=== PATIENT | female | born 1970 | race Two or more races ===

== ENCOUNTER 2023-04-05 08:21 | Outpatient (AMB) | payer OTHER, SELFPAY ==
[2023-04-05 08:32] VITALS: BP 124/70; PULSE 101; RESP 12; TEMP 36.6; O2SAT 98; BMI 40.0
--- NOTE | 2023-04-05 08:32 | AM.OFFWIN_ITS ---
Intake Vital Signs 04/05/23 08:32 Height 5 ft 9 in Weight 271 lb BMI 40.0 BP 124/70 Blood Pressure Location Lt brachial Position Sitting Respiration 12 Pulse 101 H Pulse Source Pulse Oximeter Temp 97.8 F Temp Source Temporal Artery Scan Pulse Oximetry (%) 98 Oxygen Delivery Method Room Air Intake Visit Reasons: facial swelling Intake Note: Patient states that the swelling started Saturday night. Patient has severe allergies and states that ta first it was a tingling then an itch that wouldnt stop. Patient has swelling around eyes and on sides of face. Patient would like some eavesdrops and allergy meds if possible. 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 Patient states that the swelling started Saturday night. Patient has severe allergies and states that ta first it was a tingling then an itch that wouldnt stop. Patient states she has swelling around eyes and on sides of face. She denies any breathing problems and difficulty swallowing. She denies any pain. [facility] Social History Patient Tobacco Use Status: Never used Tobacco Review of Systems Const Denies chills, Denies fatigue, Denies fever(s), Denies headache(s) and Denies weakness ENT Denies dizziness and Denies headache(s) Card Denies dyspnea Resp Denies cough, Denies dyspnea, Denies wheezing and Denies other (shortness of breath) Musc Denies numbness and Denies tingling Neuro Denies dizziness, Denies headache(s), Denies numbness, Denies tingling and Denies weakness Psych Denies anxiety and Denies depression Endo Denies fatigue Aller/Immun Denies wheezing Physical Exam Vital Signs: Last Vital Signs Temp 97.8 F 04/05/23 08:32 Pulse 101 H 04/05/23 08:32 Resp 12 04/05/23 08:32 BP 124/70 04/05/23 08:32 Pulse Ox 98 04/05/23 08:32 Oxygen Delivery Method Room Air 04/05/23 08:32 BMI result Body Mass Index 40.0 Const General: well developed; No acute distress Nutritional Appearance: well nourished Orientation/consciousness: patient oriented x3 HEENT Head: Yes normocephalic and Yes atraumatic Eyes General: appearance normal, both eyes and all related structures Pupils: Equal, round and reactive pupils present EOM: EOMs intact bilaterally Resp Effort & Inspection: normal respiratory effort Neuro General: patient oriented x3 and gait normal Cranial nerves: Yes Equal, round and reactive pupils present Psych Affect: normal affect Assessment & Plan Assessment & Plan (1) Facial swelling: Code(s): R22.0 - Localized swelling, mass and lump, head Plan: Nontender Facial swelling without swallowing or breathing problems. Allergic reaction Start Benadryl and prednisone taper Gave patient an EpiPen and she will use this if she has any breathing or swallowing trouble and then go to an ED She can follow-up with her PCP and discuss referral to immunology for allergy testing Medications: New diphenhydramine HCl (Allergy (diphenhydramine)) 50 mg (2 x 25 mg) PO TID 2 days PRN 12 tabs 0RF allergy symptoms prednisone 4 tabs daily for 4 days, 3 tabs daily for 2 days, 2 tabs daily for 2 days, 1 tab daily for 2 days PO daily; 10 days 28 tabs 0RF epinephrine (EpiPen 2-Guilherme) 0.3 mg (0.3 mL) IM Q4H 30 days PRN 2 ea 2RF anaphylaxis Coding Level of Care Code New Pt Level 3 (98585) Diagnoses Facial swelling R22.0
== END 2023-04-05 09:21 | disposition home or self-care (01) ==
PROVIDERS: Visit Provider Family Medicine
DX: R22.0 Localized swelling, mass and lump, head (principal)
CPT/HCPCS: 99203

== ENCOUNTER 2024-05-19 13:48 | Inpatient (IN) | payer OTHER, SELFPAY ==
[2024-05-19] VITALS (12 sets, daily range): BP systolic 116–151; BP diastolic 51–80; PULSE 97–126; RESP 16–25; TEMP 36–38.3; O2SAT 91–100; BMI 39.6; BMI 41.1
--- NOTE | ~2024-05-19 | US_ITS ---
EXAMINATION: US ABDOMEN LIMITED CLINICAL INFORMATION: Right upper quadrant pain with question of cholecystitis. COMPARISON: None available. TECHNIQUE: Real-time imaging of the right upper quadrant abdominal viscera. FINDINGS: PANCREAS: Normal. LIVER: Normal. The liver is normal in size. The liver contour is normal. Parenchymal echogenicity is normal. No focal hepatic lesion. There is no intrahepatic biliary duct dilatation seen. GALLBLADDER: There is a large 5.5 x 4.1 x 3.2 cm gallstone in the gallbladder. The gallbladder has a thickened wall measuring 0.9 cm with some mild fluid in the wall. Britton's sign is positive. No pericholecystic drainable fluid collections are seen COMMON BILE DUCT: Normal in caliber measuring 0.5 cm in diameter. RIGHT KIDNEY: Normal. No hydronephrosis. No renal calculi or focal parenchymal lesions. The kidney measures 10.3 cm in maximum dimension. FREE FLUID: None. US/US abdomen limited IMPRESSION: Cholelithiasis with thickened gallbladder wall and positive Britton's sign. Findings are consistent with acute cholecystitis. Electronically signed by: Mp Arreguin MD 05/19/2024 04:52 PM EDT
--- NOTE | 2024-05-19 14:45 | ECG_ITS ---
Test Reason : ARRYTHMIA Blood Pressure : / mmHG Vent. Rate : 122 BPM Atrial Rate : 122 BPM P-R Int : 120 ms QRS Dur : 068 ms QT Int : 274 ms P-R-T Axes : 046 037 027 degrees QTc Int : 390 ms Sinus tachycardia Cannot rule out Anterior infarct , age undetermined Abnormal ECG No previous ECGs available Referred By: Lucie Vaughn Electronically Signed By:Carlos Jimenez
--- NOTE | 2024-05-19 14:49 | ED.ABDPAIN ---
HPI - Abdominal Pain General Chief Complaint: Abdominal Pain Stated Complaint: Appendicitis? Sent by urgent care Time Seen by Provider: 05/19/24 15:58 Source: patient Mode of arrival: ambulatory Limitations: no limitations History of Present Illness HPI narrative: Patient is a 53-year-old female with past medical history of obesity presenting to emergency department for evaluation of abdominal pain for 3 days. Pain is localized across the upper abdomen predominantly the right upper quadrant and radiates laterally into her back, has had associated nausea with this, 2 days ago she had 2 episodes of vomiting but no vomiting since then. She was having issues with constipation but had a very large soft bowel movement today before presenting to an urgent care. She was referred to the emergency department for further evaluation. She reports having a tactile low-grade fever. Denies any history of similar pain in the past. Has not eaten over the past 3 days. Denies having pain when drinking water. Related Data Home Medications ?Medication ?Instructions ?Recorded ?Confirmed ibuprofen 200 mg tablet 400 mg PO Q6H 04/05/23 Previous Rx's ?Medication ?Instructions ?Recorded diphenhydramine HCl 25 mg tablet 50 mg (2 x 25 mg) PO TID PRN 04/05/23 (Allergy (diphenhydramine)) allergy symptoms 2 days #12 tabs epinephrine 0.3 mg/0.3 mL 0.3 mg (0.3 mL) IM Q4H PRN 04/05/23 injection, auto-injector (EpiPen anaphylaxis 30 days #2 ea 2-Guilherme) prednisone 10 mg tablet See Rx Instructions PO DAILY 10 04/05/23 days #28 tabs Allergies Allergy/AdvReac Type Severity Reaction Status Date / Time Seasonal Allergies Allergy Severe Swelling Verified 05/19/24 14:39 Pet dander Allergy Severe Itchy Eyes Uncoded 05/19/24 14:39 Review of Systems Review of Systems Yes all other systems are reviewed and are negative PMFSH Past Medical History Attestation statement: The following information was validated with the patient. Source: old records reviewed Social History Social History Patient Tobacco Use Status: Never used Tobacco Advance Directives: No Advance Directives Information Provided: No Do you have a plan to hurt others: No Plan Physical Exam ED Vital Signs: Vital Signs - 24 hr 05/19/24 14:35 05/19/24 17:27 Temperature 98.8 F 98.5 F Pulse Rate 126 H 120 H Respiratory Rate 18 25 H Blood Pressure 151/76 H 131/62 Pulse Oximetry 97 100 Oxygen Delivery Method Room Air Room Air BMI result Body Mass Index 39.6 Appearance: Alert.?Oriented to person, place and time. No acute distress.?Normal affect. Eyes: Pupils equal, round and reactive to light.? ENT: Pharynx normal.?? Neck: Normal inspection.? Neck supple.?? CVS: Heart sounds normal. Normal heart rate and rhythm.? Pulses normal.?? Respiratory: No respiratory distress.? Lung sounds clear to auscultation bilaterally?? Abdomen: Soft right upper quadrant tenderness upon palpation, positive Britotn sign. Normoactive bowel sounds. Skin: Skin warm and dry.? Normal skin color.? Extremities: No lower extremity edema.? Neuro: Moves all extremities spontaneously. Sensation intact bilaterally. No focal neuro deficits. Ambulates with normal steady gait. Course Course Course Narrative: This is a rapid medical exam performed by Lucie Vaughn PA-C. The patient is a 53-year-old female with history of obesity, presenting with abdominal pain x3 days. Pain over right upper quadrant radiates to right mid back. Associated nausea vomiting. On exam, the patient's abdomen is soft, nondistended, obese, focal tenderness to right upper quadrant with mild voluntary guarding. We will screen basic labs, LFTs, fractionate the bilirubin, and obtain an ultrasound of the right upper quadrant. To note she is also tachycardic, but afebrile, I think this is pain driven, we are trying to expedite her assessment, ordering EKG to determine the rhythm. Reevaluation(s) Reevaluation #1: Ultrasound revealing acute calculi cholecystitis with a quite sizable stone, 5.5 cm, given her leukocytosis and infection sepsis alert called, sepsis fluid bolus ordered based on ideal body weight given obesity, covering with Zosyn, trialing pain management with ketorolac. Will consult with General surgery Dr. Grayson Time: 17:06 Medical Decision Making Medical Decision Making MDM Narrative: Patient is a 53-year-old female who presents emergency department for evaluation of abdominal pain as per HPI overall appears well, nontoxic, afebrile. Reviewed serum labs obtained from [facility]; has leukocytosis 16.9 with left shift, no anemia or thrombocytopenia. No electrolyte derangement. No BRANDEN. Total bilirubin 1.2 indirect bili 0.6 LFT and lipase otherwise unremarkable. She arrived tachycardic, ECG was obtained revealing a sinus tachycardia with ventricular rate of 122, QTC 390, no ST depression or elevation, no acute ischemic changes. Obtaining ultrasound of the right upper quadrant for further evaluation; hepatobiliary etiology, nephrolithiasis, ureteral calculi Differential Diagnosis Differential Diagnoses: The differential diagnosis associated with the presentation includes (See narrative above) Admission/Observation Consideration of admission/observation: Escalation of care including admission/observation considered Consult Healthcare Provider Management of the patient was discussed with: Poultry Field Service Technician General surgery; Dr. Grayson - admission Lab Data MDM Lab Attestation statement: I reviewed the patient's lab results. (See narrative above) 05/19/24 15:04 05/19/24 15:04 Labs: Lab Results 05/19/24 05/19/24 Range/Units 15:04 17:16 WBC 16.9 H (4.8-10.8) X10*3/uL RBC 4.85 (4.20-5.50) X10*6/uL Hgb 13.3 (12.0-16.0) g/dl Hct 40.0 (37.0-47.0) % MCV 82.5 (80.0-98.0) fL MCH 27.4 (27.0-33.0) pg MCHC 33.3 (31.0-35.0) g/dl RDW 13.4 (11.0-16.0) % Plt Count 245 (160-400) X10*3/uL MPV 10.8 (9.4-12.3) fL Immature Gran % (Auto) 0.5 H (0.0-0.4) % Neut % (Auto) 87.9 H (45-73) % Lymph % (Auto) 4.6 L (20-40) % [place] % (Auto) 6.7 (2-11) % Eos % (Auto) 0.1 (0-4) % Baso % (Auto) 0.2 (0-2) % Lymph # (Auto) 0.8 L (1.2-4.9) X10*3/uL [place] # (Auto) 1.1 (0.1-1.2) X10*3/uL Eos # (Auto) 0.0 (0.0-0.4) X10*3/uL Baso # (Auto) 0.0 (0.0-0.2) X10*3/uL Abs Immat Gran (auto) 0.08 H (0.00-0.03) X10*3/uL Absolute Neuts (auto) 14.9 H (2.0-8.3) x10*3/uL Absolute Nucleated RBC 0.000 (0.0-0.012) X10*3/uL Nucleated RBC % (auto) 0.0 (0.0-0.2) /100WBC Sodium 136 (135-145) mmol/L Potassium 3.7 (3.3-5.1) mmol/L Chloride 101 (96-108) mmol/L Carbon Dioxide 25 (22-29) mmol/L Anion Gap 14 (12-20) BUN 10 (9-16) mg/dL Creatinine 0.89 (0.5-1.4) mg/dL Estim Creat Clear Calc 101.9 Estimated GFR > 60 Random Glucose 147 H (60-115) mg/dL Lactic Acid 1.3 (0.5-2.0) mmol/L Calcium 9.7 (8.4-10.2) mg/dL Magnesium 2.1 (1.6-2.6) mg/dL Total Bilirubin 1.2 H (0.0-1.0) mg/dL Direct Bilirubin 0.6 H (0.0-0.5) mg/dL AST 24 (5-31) U/L ALT 9 (0-31) U/L Alkaline Phosphatase 95 (39-117) U/L Total Protein 8.0 (6.5-8.0) g/dL Albumin 4.1 (3.5-5.0) g/dL Lipase 11 (8-78) U/L Radiology Impression Discussion of test interpretation with radiology: I have reviewed the radiologist's reading. Radiologist Impression: US/US abdomen limited IMPRESSION: Cholelithiasis with thickened gallbladder wall and positive Britton's sign. Findings are consistent with acute cholecystitis. Independent Historian Clinical information obtained from an independent historian. History obtained from or confirmed by: Other (Daughter) External Record Review External record reviewed: Outpatient record Chronic Conditions Patient?s care impacted by: Other (Obesity) Medications Administered Generic Name Dose Route Start Last Admin Trade Name Freq PRN Reason Stop Dose Admin Sodium Chloride 1,986 mls @ 1,986 mls/hr 05/19/24 17:02 05/19/24 17:19 Ns IV 05/19/24 18:01 1,986 mls/hr .Q1H STA Administration Discontinued Medications Generic Name Dose Route Start Last Admin Trade Name Freq PRN Reason Stop Dose Admin Piperacillin Sod/Tazobactam 50 mls @ 100 mls/hr 05/19/24 17:02 05/19/24 17:22 Sod 3.375 gm/ Sodium Chloride IV 05/19/24 17:31 100 mls/hr ONCE ONE Administration Ketorolac Tromethamine 15 mg 05/19/24 16:51 05/19/24 17:21 Ketorolac Tromethamine 15 Mg/Ml Vial IVPUSH 05/19/24 16:52 15 mg ONCE ONE Administration Discharge Plan Discharge Patient Disposition: Admitted As Inpatient Print Language: Venezuelan
[2024-05-19 15:09] LABS: MANUAL DIFF FLAG NO
[2024-05-19 15:12] LABS: Basophils Percent Auto 0.2 % (0-2); Eosinophils Percent Auto 0.1 % (0-4); Hemoglobin 13.3 g/dl (12.0-16.0); Imm Gran Abs Auto 0.08 X10*3/uL (0.00-0.03); Imm Gran Pct Auto 0.5 % (0.0-0.4); Lymphocytes Absolute Auto 0.8 X10*3/uL (1.2-4.9); Lymphocytes Percent Auto 4.6 % (20-40); Mean Corpuscular HGB Conc 33.3 g/dl (31.0-35.0); Mean Corpuscular Hemoglobin 27.4 pg (27.0-33.0); Mean Corpuscular Volume 82.5 fL (80.0-98.0); Mean Platelet Volume 10.8 fL (9.4-12.3); Monocytes Absolute Auto 1.1 X10*3/uL (0.1-1.2); Monocytes Percent Auto 6.7 % (2-11); Neutrophils Absolute Auto 14.9 x10*3/uL (2.0-8.3); Neutrophils Percent Auto 87.9 % (45-73); Platelet Count 245 X10*3/uL (160-400); Red Blood Count 4.85 X10*6/uL (4.20-5.50); Red Cell Distribution Width 13.4 % (11.0-16.0); White Blood Count 16.9 X10*3/uL (4.8-10.8)
[2024-05-19 15:31] LABS: Alanine Aminotransferase 9 U/L (0-31); Albumin Level 4.1 g/dL (3.5-5.0); Alkaline Phosphatase 95 U/L (39-117); Anion Gap 14 (12-20); Aspartate Amino Transferase 24 U/L (5-31); Bilirubin Direct 0.6 mg/dL (0.0-0.5); Bilirubin Total 1.2 mg/dL (0.0-1.0); Blood Urea Nitrogen 10 mg/dL (9-16); Calcium 9.7 mg/dL (8.4-10.2); Carbon Dioxide 25 mmol/L (22-29); Chloride 101 mmol/L (96-108); Creatinine Clr Calc Pharmacy 101.9; Estimated Glomerular Filt Rate > 60; Glucose Random 147 mg/dL (60-115); Lipase 11 U/L (8-78); Magnesium 2.1 mg/dL (1.6-2.6); Potassium 3.7 mmol/L (3.3-5.1); Sodium 136 mmol/L (135-145)
--- NOTE | 2024-05-19 15:55 | PC.NURSE ---
US in room
[2024-05-19] MEDS: SODIUM CHLORIDE 1986 ML IV (17:19)
[2024-05-19] MEDS: Ketorolac Tromethamine 15 MG/ML VIAL IVPUSH (17:21)
[2024-05-19] MEDS: Piperacillin Sodium/Tazobactam 3.375 GM in 0.9 % Sodium Chloride 50 ML IV ×2 (17:22→23:50)
[2024-05-19 17:34] LABS: Lactic Acid 1.3 mmol/L (0.5-2.0)
--- NOTE | 2024-05-19 18:03 | PHA.MEDREC ---
Addendum entered by Ernesto Navarro RPh 05/19/24 18:05: Med rec reviewed Original Note: Pharmacy Consult ? Medication Reconciliation Pharmacy has completed the medication reconciliation. Patient confirmed she is not taking any medications at the moment, prescription or OTC.
--- NOTE | 2024-05-19 18:55 | P.HPGS_ITS ---
History of Present Illness History of Present Illness Date of Service: 05/19/24 Chief complaint: ABDO PAIN Narrative: Dian Lemus is a 53 year old female Who comes into the ER complaining epigastric right upper quadrant pain for the last 3 days. She said it started suddenly 3 days ago it woke her up. Since then she has been having sharp pain in the right upper quadrant. She has never had issues like this before. She had some nausea and was vomiting and generally not feeling well but now feels much improved. She is tender in the right upper quadrant she is nonicteric. In the emergency room her white count was normal but her T bili was little elevated. Right upper quadrant ultrasound was carried out which showed an extensive thickening of her gallbladder wall 2.9 cm and a very large 5 x 4 cm stone in her gallbladder. No biliary ductal dilatation maybe some trace pericholecystic fluid. She never knew that she had gallbladder issues before. No past previous surgeries Review of Systems Review of Systems: Yes all other systems are reviewed and are negative [facility] Social History Social History Patient Tobacco Use Status: Never used Tobacco Advance Directives: No Advance Directives Information Provided: No Do you have a plan to hurt others: No Plan Meds Allergies Allergy/AdvReac Type Severity Reaction Status Date / Time Seasonal Allergies Allergy Severe Swelling Verified 05/19/24 14:39 Pet dander Allergy Severe Itchy Eyes Uncoded 05/19/24 14:39 Active Medications: Current Medications Acetaminophen (Acetaminophen 325 Mg Tablet) 650 mg PO Q6H PRN PRN Reason: Pain, Mild (Pain Scale 1-3), fever or headache Calcium Carbonate (Calcium Carbonate 750 Mg Tab.Chew) 750 mg PO Q4H PRN PRN Reason: Heartburn Magnesium Hydroxide (Milk Of Magnesia 30 Ml Oral.Susp) 30 ml PO DAILY PRN PRN Reason: Constipation Melatonin (Melatonin 3 Mg Tablet) 6 mg PO BEDTIME PRN PRN Reason: Insomnia Sodium Chloride (0.9 % Sodium Chloride Flush 3 Ml Syringe) 3 [facility] Home Medications ?Medication ?Instructions ?Recorded ?Confirmed ?Last Taken ?Type No Known Home Meds 05/19/24 05/19/24 Unknown History Physical Exam Vital Signs: Vital Signs: Last Vital Signs Temp 99.4 F 05/19/24 18:15 Pulse 115 H 05/19/24 18:29 Resp 25 H 05/19/24 18:29 BP 141/74 H 05/19/24 18:29 Pulse Ox 95 05/19/24 18:15 O2 Del Method Room Air 05/19/24 18:15 BMI result Body Mass Index 39.6 Const: General: cooperative, healthy appearing, comfortable and no acute distress Eyes: Other: Nonicteric Resp: Effort & Inspection: normal respiratory effort Auscultation: clear to auscultation bilaterally Cardio: Rate: regular rate Rhythm: regular rhythm GI: Other: Abdomen is soft obese tender in the right upper quadrant with guarding no rebound no peritoneal signs no masses Skin: Other: Nonicteric Extrem: General: Yes normal to inspection Results Results Labs: Short CBC 05/19/24 Range/Units 15:04 WBC 16.9 H (4.8-10.8) X10*3/uL Hgb 13.3 (12.0-16.0) g/dl Hct 40.0 (37.0-47.0) % Plt Count 245 (160-400) X10*3/uL BMP 05/19/24 15:04 Sodium 136 Potassium 3.7 Chloride 101 Carbon Dioxide 25 BUN 10 Creatinine 0.89 Calcium 9.7 Liver Function 05/19/24 Range/Units 15:04 Total Bilirubin 1.2 H (0.0-1.0) mg/dL Direct Bilirubin 0.6 H (0.0-0.5) mg/dL AST 24 (5-31) U/L ALT 9 (0-31) U/L Alkaline Phosphatase 95 (39-117) U/L Albumin 4.1 (3.5-5.0) g/dL Abdomen CT scan report/results: report reviewed and image reviewed CT scan - pelvis: report reviewed and image reviewed Assessment and Plan (1) Acute calculous cholecystitis: Status: Acute Plan 53-year-old female obese BMI 40 with 3 day history of right upper quadrant pain elevated white count at 16.9 tender no right upper quadrant findings very suspicious for acute cholecystitis. Plan is to go to the OR carry out laparoscopic cholecystectomy and she how she does afterwards. She will be made NPO IV fluid hydration discuss with anesthesia team. Risks and benefits were discussed with the patient including but not limited to bleeding infection bowel injury possible other organ injury possible bile duct really common bile duct leak possible Quality Stroke Does the patient have a stroke diagnosis?: No VTE Prior VTE?: No VTE Risk Level:: Surgical - low VTE Device Contraindication: Treatment Not Indicated VTE Drug Contraindication: Treatment Not Indicated Procedures Date of Service Date of Service: 05/19/24
--- NOTE | 2024-05-19 18:55 | PC.NURSE ---
received report from Latesha Salmeron RN, assume care of pt at this time
--- NOTE | 2024-05-19 19:06 | PC.NURSE ---
report given to Almaz DAO, in PACU
--- NOTE | 2024-05-19 19:34 | PC.NURSE ---
pt to OR
--- NOTE | 2024-05-19 20:19 | HO.ANESPROP2 ---
HPI - Anesthesia Eval Consult details Narrative: Acute cholecystitis PMFSH Active Problems Active Problems: All Active Problems Acute calculous cholecystitis (Acute) Facial swelling (Acute) Family History Family history of problems with anesthesia: No Surgical History History of Problems with Anesthesia: No Social History Social History Patient Tobacco Use Status: Never used Tobacco Advance Directives: No Advance Directives Information Provided: No Do you have a plan to hurt others: No Plan Meds Allergies Allergy/AdvReac Type Severity Reaction Status Date / Time Seasonal Allergies Allergy Severe Swelling Verified 05/19/24 14:39 Pet dander Allergy Severe Itchy Eyes Uncoded 05/19/24 14:39 Active Medications: Current Medications Acetaminophen (Acetaminophen 325 Mg Tablet) 650 mg PO Q6H PRN PRN Reason: Pain, Mild (Pain Scale 1-3), fever or headache Calcium Carbonate (Calcium Carbonate 750 Mg Tab.Chew) 750 mg PO Q4H PRN PRN Reason: Heartburn Magnesium Hydroxide (Milk Of Magnesia 30 Ml Oral.Susp) 30 ml PO DAILY PRN PRN Reason: Constipation Melatonin (Melatonin 3 Mg Tablet) 6 mg PO BEDTIME PRN PRN Reason: Insomnia Sodium Chloride (0.9 % Sodium Chloride Flush 3 Ml Syringe) 3 ml IVFLUSH QSHIFT COUNTS INCLUDE 234 BEDS AT THE [facility] Home Medications ?Medication ?Instructions ?Recorded ?Confirmed ?Last Taken ?Type No Known Home Meds 05/19/24 05/19/24 Unknown History Exam Height,Weight and Vital Signs: Height 5 ft 9 in Weight 121.6 kg Last Vital Signs Temp 100.9 F H 05/19/24 19:24 Pulse 113 H 05/19/24 19:24 Resp 16 05/19/24 19:24 BP 145/80 H 05/19/24 19:24 Pulse Ox 97 05/19/24 19:24 O2 Del Method Room Air 05/19/24 19:24 Pertinent Lab Results Pertinent Lab Results: Laboratory Tests 05/19/24 05/19/24 15:04 17:16 WBC 16.9 H RBC 4.85 Hgb 13.3 Hct 40.0 MCV 82.5 MCH 27.4 MCHC 33.3 RDW 13.4 Plt Count 245 MPV 10.8 Immature Gran % (Auto) 0.5 H Neut % (Auto) 87.9 H Lymph % (Auto) 4.6 L [place] % (Auto) 6.7 Eos % (Auto) 0.1 Baso % (Auto) 0.2 Lymph # (Auto) 0.8 L [place] # (Auto) 1.1 Eos # (Auto) 0.0 Baso # (Auto) 0.0 Abs Immat Gran (auto) 0.08 H Absolute Neuts (auto) 14.9 H Absolute Nucleated RBC 0.000 Nucleated RBC % (auto) 0.0 Sodium 136 Potassium 3.7 Chloride 101 Carbon Dioxide 25 Anion Gap 14 BUN 10 Creatinine 0.89 Estim Creat Clear Calc 101.9 Estimated GFR > 60 Random Glucose 147 H Lactic Acid 1.3 Calcium 9.7 Magnesium 2.1 Total Bilirubin 1.2 H Direct Bilirubin 0.6 H AST 24 ALT 9 Alkaline Phosphatase 95 Total Protein 8.0 Albumin 4.1 Lipase 11 Airway Mallampati Class: II TM Dist: >3cm Neck ROM: Full Loose/Missing/Broken Teeth: No Heart: RRR Lungs: CTA Assessment and Plan Assessment Anesthesia Assessment: Anesthesia Plan Discussed and Chart Reviewed Final Anesthetic Review Family History of Problems with Anesthesia: No History of Problems with Anesthesia: No NPO: Yes ASA Class: III and Emergency Final Preanesthetic Review: No Changes in Pt Med Stat, Meds/Allgs Chart Reviewed, Consent Obtained/Reviewed and Anes Risks/Benef Reviewed Patient Risk: Intermediate Procedure Risk: Intermediate Anesthetic Plan Anesthetic Plan: GA Disposition: Standard PACU
--- NOTE | 2024-05-19 22:46 | P.OP_ITS ---
Operative Note Operative Note Date of Service: 05/19/24 Narrative: Preop diagnosis-- acute cholecystitis Postop diagnosis-- acute cholecystitis Procedure-- laparoscopic cholecystectomy Surgeon-- Renuka Anesthesia-- general endotracheal tube anesthesia The patient is a 53-year-old female who has been having epigastric and right upper quadrant pain for the last 3 days not sure vomiting. She has never had pain this before. She came in today to the emergency room and was very tender tachycardic and mildly septic. White count was elevated at 16 an ultrasound showed thickening of her gallbladder with a large 5 cm stone and pericholecystic fluid. As result plan was to admit IV antibiotics and bring her to the operative room to undergo laparoscopic cholecystectomy Findings--enlarged thickened gallbladder almost filled with 1 large hard stone. Procedure-- Patient was brought to the operative room under Anesthesia guidance was intubated. She got compression stockings placed before induction received preoperative antibiotics. Her abdomen was prepped and draped in standard surgical fashion. An infraumbilical incision was created after numbing up the area with a 0.25% Marcaine with epinephrine. Dissection was carried down to the anterior abdominal wall fascia which was grasped with Erica's and transected. 0 Vicryl pursestring suture placed and the Topete trocar introduced. Pneumoperitoneum was established to 15 mm Hg. Patient was then positioned head up and left side down and the camera introduced into the peritoneal cavity. There was some adhesions in the right upper quadrant and there was lot of fatty tissue tucked down into the right upper quadrant area looking like it was probably encompassing a very sick gallbladder. 5 mm port was placed a little more in the left abdomen and some of these adhesions were taken down with cautery. The son eventually freed up the area near the falciform ligament and a 5 mm port was placed here. Eventually 2 5 mm ports were placed in the right upper quadrant and gallbladder was identified at the edge of the liver and was very thickened hard and heavy there was petechial changes along gallbladder. Little pockets of necrotic wall were also noted scattered along the dome of the gallbladder. Then the LigaSure was obtained and the falciform ligament which was very fatty and tucked into the right upper quadrant area was taken down and this allowed for better identification and grasping of the gallbladder. It had been needle decompressed little bit but still in trying to grasped and retracted superiorly and laterally this was difficult to do secondary to the very large stone present in side. We are able to retract the dome in the neck area little bit laterally. Then would careful dissection bluntly with the [place] and the suction manager income tax stick variable to identify the cystic duct and the cystic artery. Because of the thickened nature of the tissue here the epigastric port was converted to 10 12 and the clip supervisor records change used to clip the cystic artery to down 1 up and transected the cystic duct was now better seen and was the only structure going into the gallbladder this was clipped to down and 1 off and then transected and the clips all looked good. Then doing some blunt dissection and trying to lift the gallbladder which was difficult secondary to the large stone present filling the whole gallbladder some posterior arterial branches were identified and these were clipped heading straight into the gallbladder transected now using the [place] and then the cautery hook cautery the gallbladder was peeled off the liver bed. The gallbladder was extremely inflamed than the liver bed was very oozy eventually we got this off and packed the area with some Surgicel and pressure allow for hemostasis. Area was suctioned and irrigated and some spilled bile was suctioned out. Once the hemostasis area was good with a little more cautery applied to the liver bed the Surgicel was all removed and then the gallbladder placed in the Endo-Catch bag from the infraumbilical port site. In pulling it through the umbilical site we needed to make the incision significantly larger and able to remove the very large stone. This required opening up the fascia some more and eventually the bag in his gallbladder. The large infraumbilical fascial defect was then closed and figure of 8 0 Ethibond sutures and this approximated the tissue well. Pneumoperitoneum was reestablished and the area examined internally fascial looked fine quick evaluation of the liver bed revealed that everything looks good here too. Now Alvarez Jean device was used to do 1 simple closure of the 10 12 epigastric port site and the secure the fascia nicely. The other 5 mm port sites were then removed and pneumoperitoneum deflated. The infraumbilical which port site defect was now closed with subcutaneous with subcutaneous fatty tissue approximation with 2-0 Vicryl after more local was used. Five 0 Monocryl was then used in a running subcuticular fashion to close all the port sites Steri-Strips and Tegaderm dressings applied. At the end of the case all sponge instrument needle counts were correct estimated blood loss was about 75 cc specimens sent was the gallbladder patient was extubated returned stable to recovery
[2024-05-19] MEDS: ondansetron HCL 4 MG/2 ML VIAL IVPUSH (23:44)
[2024-05-20] MEDS: 0.9 % Sodium Chloride Flush 3 ML SYRINGE IVFLUSH ×2 (01:03→07:39)
[2024-05-20 04:00] VITALS: BP 121/66; PULSE 86; RESP 16; TEMP 36.1; O2SAT 95
[2024-05-20] MEDS: Piperacillin Sodium/Tazobactam 3.375 GM in 0.9 % Sodium Chloride 50 ML IV ×2 (05:51→10:17)
[2024-05-20 06:21] LABS: MANUAL DIFF FLAG NO
[2024-05-20 06:23] LABS: Basophils Percent Auto 0.2 % (0-2); Hematocrit 34.7 % (37.0-47.0); Hemoglobin 11.5 g/dl (12.0-16.0); Imm Gran Abs Auto 0.08 X10*3/uL (0.00-0.03); Imm Gran Pct Auto 0.6 % (0.0-0.4); Lymphocytes Absolute Auto 0.6 X10*3/uL (1.2-4.9); Mean Corpuscular HGB Conc 33.1 g/dl (31.0-35.0); Mean Corpuscular Hemoglobin 27.6 pg (27.0-33.0); Mean Corpuscular Volume 83.4 fL (80.0-98.0); Mean Platelet Volume 11.3 fL (9.4-12.3); Monocytes Absolute Auto 0.7 X10*3/uL (0.1-1.2); Monocytes Percent Auto 5.3 % (2-11); Neutrophils Absolute Auto 11.2 x10*3/uL (2.0-8.3); Neutrophils Percent Auto 88.9 % (45-73); Platelet Count 223 X10*3/uL (160-400); Red Blood Count 4.16 X10*6/uL (4.20-5.50); Red Cell Distribution Width 13.5 % (11.0-16.0); White Blood Count 12.6 X10*3/uL (4.8-10.8)
[2024-05-20 06:30] VITALS: O2SAT 95
[2024-05-20 07:42] VITALS: BP 134/77; PULSE 89; RESP 16; TEMP 37.1; O2SAT 94
--- NOTE | 2024-05-20 07:57 | PM.PNGS ---
Subjective Subjective Date of Service: 05/20/24 <Cyndy Groves PA-C - Last Filed: 05/20/24 07:59> 05/20/24 <Husam Friedman MD - Last Filed: 05/20/24 08:41> Interval history: Feels well, denies pain. Tolerating ice chips, has no eaten yet. OOB and ambulating without difficulty. Wants to go home. <Cyndy Groves PA-C - Last Filed: 05/20/24 07:59> Physical Exam Vital Signs: Vital Signs: Last Vital Signs Temp 98.7 F 05/20/24 07:42 Pulse 89 05/20/24 07:42 Resp 16 05/20/24 07:42 BP 134/77 05/20/24 07:42 Pulse Ox 94 05/20/24 07:42 O2 Del Method Room Air 05/20/24 07:42 O2 Flow Rate 2 05/20/24 04:00 BMI result Body Mass Index 41.1 <Cyndy Groves PA-C - Last Filed: 05/20/24 07:59> Const: General: comfortable, no acute distress and alert <Cyndy Groves PA-C - Last Filed: 05/20/24 07:59> Orientation/consciousness: patient oriented x3 <Cyndy Groves PA-C - Last Filed: 05/20/24 07:59> Resp: Effort & Inspection: normal respiratory effort <Cyndy Groves PA-C - Last Filed: 05/20/24 07:59> GI: Inspection: No distended and Yes incision (dressings c/d/i) <Cyndy Groves PA-C - Last Filed: 05/20/24 07:59> Palpation (GI): Soft to palpation, nontender and no guarding <NICK King Last Filed: 05/20/24 07:59> Skin: General skin exam: no rashes or lesions noted and no jaundice <NICK King Last Filed: 05/20/24 07:59> Neuro: General: patient oriented x3 <NICK King Last Filed: 05/20/24 07:59> Objective Data Active Medications Acetaminophen (Acetaminophen 325 Mg Tablet) 650 mg PO Q6H PRN PRN Reason: Pain, Mild (Pain Scale 1-3), fever or headache Calcium Carbonate (Calcium Carbonate 750 Mg Tab.Chew) 750 mg PO Q4H PRN PRN Reason: Heartburn Piperacillin Sod/Tazobactam (Sod 3.375 gm/ Sodium Chloride) 50 mls @ 100 mls/hr IV Q6H [facility] Last Infusion: 05/20/24 06:21 Dose: Infused Documented By: SARA Ketorolac Tromethamine (Ketorolac Tromethamine 30 Mg/Ml Vial) 30 mg IVPUSH Q6H PRN PRN Reason: Pain, Severe (Pain Scale 7-10) Stop: 05/24/24 23:14 Magnesium Hydroxide (Milk Of Magnesia 30 Ml Oral.Susp) 30 ml PO DAILY PRN PRN Reason: Constipation Melatonin (Melatonin 3 Mg Tablet) 6 mg PO BEDTIME PRN PRN Reason: Insomnia Naloxone HCl (Naloxone Hcl 0.4 Mg/Ml Vial) 0.04 mg IVPUSH Q5M PRN PRN Reason: Excessive sedation or RR < 8 Ondansetron HCl (Ondansetron Hcl 4 Mg/2 Ml Vial) 4 mg IVPUSH Q8H PRN PRN Reason: Nausea and Vomiting Last Admin: 05/19/24 23:44 Dose: 4 mg Documented By: SARA Oxycodone HCl (Oxycodone Hcl Immed Release 5 Mg Tablet) 10 mg PO Q4H PRN PRN Reason: Pain, Severe (Pain Scale 7-10) Oxycodone HCl (Oxycodone Hcl Immed Release 5 Mg Tablet) 5 mg PO Q4H PRN PRN Reason: Pain, Mild (Pain Scale 1-3) Sodium Chloride (0.9 % Sodium Chloride Flush 3 Ml Syringe) 3 ml IVFLUSH QSHIFT [facility] Last Admin: 05/20/24 07:39 Dose: 3 ml Documented By: DIANA <Cyndy Groves PA-C - Last Filed: 05/20/24 07:59> Labs CBC & Chem 7: 05/20/24 05:43 05/19/24 15:04 <Cyndy Groves PA-C - Last Filed: 05/20/24 07:59> Labs: Laboratory Results - last 24 hr 05/19/24 05/19/24 05/20/24 15:04 17:16 05:43 MCV 82.5 83.4 MCH 27.4 27.6 MCHC 33.3 33.1 RDW 13.4 13.5 Plt Count 245 223 MPV 10.8 11.3 Immature Gran % (Auto) 0.5 H 0.6 H Neut % (Auto) 87.9 H 88.9 H Lymph % (Auto) 4.6 L 5.0 L [place] % (Auto) 6.7 5.3 Eos % (Auto) 0.1 0.0 Baso % (Auto) 0.2 0.2 Lymph # (Auto) 0.8 L 0.6 L [place] # (Auto) 1.1 0.7 Eos # (Auto) 0.0 0.0 Baso # (Auto) 0.0 0.0 Abs Immat Gran (auto) 0.08 H 0.08 H Absolute Neuts (auto) 14.9 H 11.2 H Absolute Nucleated RBC 0.000 0.000 Nucleated RBC % (auto) 0.0 0.0 Anion Gap 14 Estim Creat Clear Calc 101.9 Estimated GFR > 60 Random Glucose 147 H Lactic Acid 1.3 Calcium 9.7 Magnesium 2.1 Total Bilirubin 1.2 H Direct Bilirubin 0.6 H AST 24 ALT 9 Alkaline Phosphatase 95 Total Protein 8.0 Albumin 4.1 Lipase 11 <Cyndy Groves PA-C - Last Filed: 05/20/24 07:59> Procedures Date of Service Date of Service: 05/20/24 <Cyndy Groves PA-C - Last Filed: 05/20/24 07:59> 05/20/24 <Husam Friedman MD - Last Filed: 05/20/24 08:41> Progress Note: A&P Assessment and plan (1) Acute calculous cholecystitis: Status: Acute <Cyndy Groves PA-C - Last Filed: 05/20/24 07:59> (2) S/P laparoscopic cholecystectomy: Status: Acute <Cyndy Groves PA-C - Last Filed: 05/20/24 07:59> Assessment and Plan: feels well good pain control says she feels ready to be discharged abd soft and benign ok to dc home once tolerating diet ffup isntructions reinforced seen and examined independently <Husam Friedman MD - Last Filed: 05/20/24 08:41> Assessment and Plan: POD #1 s/p lap dolly. Patient doing well post op. VSS. Abd exam benign with clean and intact dressings. WIll reassess later this morning, if tolerating breakfast and remains comfortable, stable for dc to home. Patient comfortable with plan. <Cyndy Groves PA-C - Last Filed: 05/20/24 07:59> Time Spent With Patient Time: Total time managing care of this patient today ____ minutes. <Cyndy Groves PA-C - Last Filed: 05/20/24 07:59> Quality Stroke Does the patient have a stroke diagnosis?: No <Cyndy Groves PA-C - Last Filed: 05/20/24 07:59> VTE Prior VTE?: No <Cyndy Groves PA-C - Last Filed: 05/20/24 07:59> VTE Risk Level:: Surgical - low <Cyndy Groves PA-C - Last Filed: 05/20/24 07:59> VTE Device Contraindication: N/A - Device Ordered <Cyndy Groves PA-C - Last Filed: 05/20/24 07:59> VTE Drug Contraindication: Treatment Not Indicated <Cyndy Groves PA-C - Last Filed: 05/20/24 07:59>
--- NOTE | 2024-05-20 08:20 | HO.POSTANES ---
Post Anesthesia Evaluation Post Anesthesia Evaluation Date of Service: 05/20/24 Vital Signs: Vital Signs Temp Pulse Resp BP Pulse Ox O2 Del Method O2 Flow Rate 05/20/24 07:42 98.7 F 89 16 134/77 94 Room Air 05/20/24 06:30 95 Room Air 05/20/24 04:00 96.9 F 86 16 121/66 95 Nasal Cannula 2 05/19/24 23:28 96.8 F 97 18 129/66 92 Nasal Cannula 2 05/19/24 23:10 97 F 100 16 124/63 94 Nasal Cannula 2 05/19/24 22:55 102 H 16 121/62 94 Nasal Cannula 2 05/19/24 22:50 109 H 16 132/51 L 94 Nasal Cannula 3 05/19/24 22:45 106 H 16 116/60 94 Simple Mask 6 05/19/24 22:42 97.5 F 113 H 18 120/62 91 L Simple Mask 6 Anesthesia: General Endotracheal-GETA Mental Status: Awake Pain Control: Satisfactory Nausea/Vomiting: None Hydration: Adequate Anesthesia-Related Issues: No Anes. Related Issues
--- NOTE | 2024-05-20 09:25 | MHC.CM.PN ---
pt is indepedent and is working has own rdie home dc plan home no servies
--- NOTE | 2024-05-20 10:59 | MHC.CM.PN ---
pt dcd home self care
--- NOTE | 2024-05-20 11:01 | PM.DS ---
DS: Providers Provider Date of Service: 05/20/24 Date of admission: 05/19/24 18:48 Date of discharge: 05/20/24 Primary care physician: Winter Physician Attending physician on admission: Ana Grayson Attending physician on discharge: Husam Friedman DS: Diagnosis Discharge Diagnosis (1) Acute calculous cholecystitis: Status: Acute (2) S/P laparoscopic cholecystectomy: Status: Acute DS: Summary Hospital Course Hospital Course: HPI AT ADMISSION: Dian Lemus is a 53 year old female who comes into the ER complaining epigastric right upper quadrant pain for the last 3 days. She said it started suddenly 3 days ago it woke her up. Since then she has been having sharp pain in the right upper quadrant. She has never had issues like this before. She had some nausea and was vomiting and generally not feeling well but now feels much improved. She is tender in the right upper quadrant she is nonicteric. In the emergency room her white count was normal but her T bili was little elevated. Right upper quadrant ultrasound was carried out which showed an extensive thickening of her gallbladder wall 2.9 cm and a very large 5 x 4 cm stone in her gallbladder. No biliary ductal dilatation maybe some trace pericholecystic fluid. She never knew that she had gallbladder issues before. No past previous surgeries HOSPITAL COURSE: The patient was admitted to the surgical service for further treatment of the acute cholecystitis. She elected to proceed with laparoscopic cholecystectomy, possible open. She was added onto the OR schedule for that day. On 05/19/24, a laparoscopic cholecystectomy was performed by Dr. Grayson without complication. The patient tolerated the procedure well. She had an uncomplicated recovery course. On POD #1, she felt well and was tolerating a solid diet without nausea or vomiting, had good pain control and was ambulating without difficulty. She was hemodynamically stable. Her abdomen was benign with appropriate post op tenderness and clean and intact dressings. She felt ready for discharge. She was discharged to home on 05/20/24 in stable condition. She is to follow up in the office in 1-2 weeks. Status at Discharge Functional status at discharge: independent ambulation Overall status at discharge: patient is progressing back to baseline Time Attestation Discharge Coordination Time (in mins): 30 Quality: Safe Use of Opioids Does Pt have an Active Cancer Diagnosis on the Problem List?: No Quality: Stroke Does the patient have a stroke diagnosis?: No Physical Exam Vital Signs: Vital Signs: Last Vital Signs Temp 98.7 F 05/20/24 07:42 Pulse 89 05/20/24 07:42 Resp 16 05/20/24 07:42 BP 134/77 05/20/24 07:42 Pulse Ox 94 05/20/24 07:42 O2 Del Method Room Air 05/20/24 07:42 O2 Flow Rate 2 05/20/24 04:00 BMI result Body Mass Index 41.1 Const: General: comfortable, no acute distress and alert Orientation/consciousness: patient oriented x3 Resp: Effort & Inspection: normal respiratory effort GI: Inspection: Yes incision (dressings c/d/i) Palpation (GI): Soft to palpation, Tenderness to palpation present (GI) (mild incisional) and no guarding Skin: General skin exam: no rashes or lesions noted and no jaundice Neuro: General: patient oriented x3 and moves all extremities DS: Data Data Completed and Pending Pending studies at discharge: Pending at discharge 05/19/24 22:19 Surgical [PTH] Routine Labs on day of discharge: Laboratory Results - last 24 hr 05/19/24 05/19/24 05/20/24 15:04 17:16 05:43 WBC 16.9 H 12.6 H RBC 4.85 4.16 L Hgb 13.3 11.5 L Hct 40.0 34.7 L MCV 82.5 83.4 MCH 27.4 27.6 MCHC 33.3 33.1 RDW 13.4 13.5 Plt Count 245 223 MPV 10.8 11.3 Immature Gran % (Auto) 0.5 H 0.6 H Neut % (Auto) 87.9 H 88.9 H Lymph % (Auto) 4.6 L 5.0 L [place] % (Auto) 6.7 5.3 Eos % (Auto) 0.1 0.0 Baso % (Auto) 0.2 0.2 Lymph # (Auto) 0.8 L 0.6 L [place] # (Auto) 1.1 0.7 Eos # (Auto) 0.0 0.0 Baso # (Auto) 0.0 0.0 Abs Immat Gran (auto) 0.08 H 0.08 H Absolute Neuts (auto) 14.9 H 11.2 H Absolute Nucleated RBC 0.000 0.000 Nucleated RBC % (auto) 0.0 0.0 Sodium 136 Potassium 3.7 Chloride 101 Carbon Dioxide 25 Anion Gap 14 BUN 10 Creatinine 0.89 Estim Creat Clear Calc 101.9 Estimated GFR > 60 Random Glucose 147 H Lactic Acid 1.3 Calcium 9.7 Magnesium 2.1 Total Bilirubin 1.2 H Direct Bilirubin 0.6 H AST 24 ALT 9 Alkaline Phosphatase 95 Total Protein 8.0 Albumin 4.1 Lipase 11 Discharge Plan Discharge Anticipated Discharge Date/Time: 05/20/24 10:21 Patient Disposition: Home, Self-Care Discharge Diagnosis: acute cholecystitis, s/p laparoscopic cholecystectomy Referrals: Husam Friedman MD [Physician] - 2 Weeks Physician,Winter [Primary Care Provider] - 1 Week Discharge Medications: New docusate sodium [Colace] 100 mg capsule 100 mg PO BID Qty: 30 0RF oxycodone 5 mg tablet 5 mg PO Q4H PRN (Reason: pain (scale score 7-10)) Qty: 24 0RF Rx Instructions: Partial Fill upon patient request. Discharge Orders: Discharge Order (Routine); Ordered 05/20/24 Ordered By: Cyndy Groves Diet: Low fat, low cholesterol Activity on Discharge: No heavy lifting Stand Alone Forms: Patient Portal Discharge page, Work/School Release Print Language: Malay Activity Restrictions/Additional Instructions: If the incision area is tender, you may apply an ice pack for short intervals (No more than 20 minutes on, followed by at least 20 minutes off). Do not apply heat. Do not use creams, lotions, or topical antibiotics. Ok to shower. Remove clear dressings 3 days following your procedure. You have steri strips (small white cloth strips) covering your incision- these will fall off ~1 week. No heavy lifting (>10lbs) or strenuous activity! Take Tylenol Extra-strength 1-2 tabs every 6 hours for the first day, then as needed. Oxycodone every 6-8 hours as needed for pain. Colace 100 mg every day as needed for constipation. Follow up in office with Dr. Friedman in 1-2 weeks. ([phone]) Call Your Doctor If: -Your temperature exceeds 101.5? F -You experience excessive pain or swelling -You have an unexpected reaction to medication -You have excessive bleeding -You experience continued vomiting/nausea -Your incision begins to separate -Your incision shows signs of infection such as increased redness, swelling, excessive pain, drainage (light blood or clear fluid is normal) or heat Care Plan Goals: Return to baseline health and resume normal activities following recovery period. Health Concerns: acute cholecystitis Plan of Treatment: s/p laparoscopic cholecystectomy f/u in office in 1-2 weeks Assessment: Doing well post op. Patient Instructions: Laparoscopic Cholecystectomy (GEN)
== END 2024-05-20 12:04 | disposition home or self-care (01) | DRG 263 ==
LOC: HO.ED 17:25 → HO.EDOVER 18:54 → HO.S3 19:14
PROVIDERS: Nurse Practitioner Family; Physician Assistant Medical; Admitting Provider Surgery; Emergency Provider Emergency Medicine Emergency Medical Services; Visit Provider Surgery
PROC: 0FT44ZZ Resection of Gallbladder, Percutaneous Endoscopic Approach (ICD-10-PCS; CPT 47562; principal; 2024-05-19 19:30)
DX: K80.00 Calculus of gallbladder with acute cholecystitis without obstruction (principal)
CPT/HCPCS: 47562; 36415; 76705; 80053; 82248; 83605; 83690; 83735; 85025; 87040; 88304; 93005; 96365; 96366; 96375; 99221; 99285; J1171; J1885; J2003; J2004; J2405; J2543; J2704; J2795; J3010

== ENCOUNTER → 2024-05-19 14:45 | Outpatient (BNV) | payer OTHER, SELFPAY | PROVIDERS: Admitting Provider Surgery; Emergency Provider Emergency Medicine Emergency Medical Services; Visit Provider Internal Medicine Cardiovascular Disease | DX: R94.31 Abnormal electrocardiogram [ECG] [EKG] (principal) | CPT/HCPCS: 93010 ==

== ENCOUNTER → 2024-05-19 18:48 | Outpatient (BNV) | payer OTHER, SELFPAY | PROVIDERS: Admitting Provider Surgery; Emergency Provider Emergency Medicine Emergency Medical Services; Visit Provider Surgery | DX: K81.0 Acute cholecystitis (principal); Z48.89 Encounter for other specified surgical aftercare | CPT/HCPCS: 47562; 99024; 99223 ==

== ENCOUNTER 2024-06-01 13:08 | Outpatient (AMB) | payer OTHER, SELFPAY ==
--- NOTE | 2024-06-01 13:13 | MHC.OFFVIS ---
Intake Visit Reasons: S/P laparoscopic cholecystectomy: Intake Note: This patient presents for post-op status post laparoscopic cholecystectomy. Pt c/o; reports no complaints pertaining to surgery. Insurance Claims Adjuster Required: No Accompanied by: Mother Allergies Seasonal Allergies Allergy (Severe, Verified 06/01/24 13:14) Swelling Pet dander Allergy (Severe, Uncoded 06/01/24 13:14) Itchy Eyes HPI HPI S/P laparoscopic cholecystectomy:: Details: [age] year old female here for postop visit. She underwent laparoscopic cholecystectomy with Dr. Grayson last 05/19/2024 for acute cholecystitis. She tolerated procedure well and was discharged on postop day 1. She says he feels well overall. She says she is not eating as much she had. She otherwise seems to be doing quite well. [facility] Surgical History History of laparoscopic cholecystectomy (~05/19/24) Social History Household Members: None Housing: Apartment Do you presently have visiting nurse or other home services: No Patient Tobacco Use Status: Never used Tobacco service: No Review of Systems Const Denies chills and Denies fever(s) Card Denies chest pain at rest Resp Denies cough GI Denies abdominal pain Physical Exam Const General: comfortable and no acute distress Eyes Other: Anicteric sclerae Resp Effort & Inspection: normal respiratory effort GI Other: All incisions are well healing, clean, not infected Palpation (GI): Soft to palpation, not firm, nontender and no guarding Assessment & Plan Assessment & Plan (1) S/P laparoscopic cholecystectomy: Code(s): Z90.49 - Acquired absence of other specified parts of digestive tract Category: Surgical Plan: She is doing well postoperatively. All incisions are well healed. I advised her to avoid lifting anything more than 20 lb for at least 2 more weeks. She can otherwise follow up on a p.r.n. basis. Her path report shows acute gangrenous cholecystitis. Coding Level of Care Code Global (67280) Diagnoses S/P laparoscopic cholecystectomy Z90.49
== END 2024-06-01 13:24 | disposition home or self-care (01) ==
LOC: HO.HGS 13:11
PROVIDERS: Visit Provider Surgery
DX: Z90.49 Acquired absence of other specified parts of digestive tract (principal)
CPT/HCPCS: 99024